=== PATIENT | male | born 2005 | race Two or more races ===

== ENCOUNTER 2025-04-28 11:50 | Emergency (ER) | payer OTHER ==
[2025-04-28] MEDS: Ketorolac 30 MG/ML SDV IM ONE (14:20)
[2025-04-28] MEDS: Diphtheria,Pertussis(Acell),Tetanus Vaccine 0.5 ML Syringe IM ONE (14:21)
== END 2025-04-28 15:00 ==
LOC: JD.ED 11:50
DX: S62.631B Displaced fracture of distal phalanx of left index finger, initial encounter for open fracture (principal); S62.605B Fracture of unspecified phalanx of left ring finger, initial encounter for open fracture; W20.8XXA Other cause of strike by thrown, projected or falling object, initial encounter; Y99.0 Civilian activity done for income or pay
CPT/HCPCS: 90471; 90715; 96372; 99284; J0690; J1885; J2003